=== PATIENT | female | born 1995 | race Hispanic/Latino ===

== ENCOUNTER 2023-01-05 21:35 | Emergency (ER) | payer OTHER ==
[~2023-01-05] VITALS: Ht 154.9 cm; Wt 73.9 kg
[2023-01-05 22:27] LABS: RAPID GROUP A STREP negative (NEGATIVE)
[2023-01-05 22:49] LABS: SARS-CoV-2, RNA, NAAT NEGATIVE SARS CoV-2 (NEGATIVE)
[2023-01-05 22:50] LABS: INFLUENZA TYPE A Negative For Type A (NEGATIVE); INFLUENZA TYPE B Negative For Type B (NEGATIVE)
[2023-01-06 01:22] VITALS: PULSE 91; RESP 23
[2023-01-06 01:28] VITALS: PULSE 92; RESP 22
[2023-01-06] MEDS ORDERED: SOLU-MEDROL 125MG VIAL IVP ONE (01:30)
[2023-01-06] MEDS ORDERED: IPRATROPIUM/ALBUTEROL SULFATE 3 ML SOLUTION IH ONE ×2 (01:30→04:00)
[2023-01-06] MEDS ORDERED: MAGNESIUM 2GM PREMIX 50ML 50 ML IV SCH (01:30)
[2023-01-06 03:58] VITALS: PULSE 90; RESP 18
[2023-01-06] MEDS ORDERED: CEFU500T67 PO (04:23)
[2023-01-06] MEDS ORDERED: PRED20TA3 PO (04:23)
[2023-01-06] MEDS ORDERED: ALBU90AE2 IH (04:23)
[2023-01-06 04:40] VITALS: BP 117/64; PULSE 86; RESP 16; O2SAT 100
== END 2023-01-06 05:00 | disposition home or self-care (01) ==
LOC: EDH 21:35
DX: J45.909 Unspecified asthma, uncomplicated (principal); Z20.822 Contact with and (suspected) exposure to COVID-19
CPT/HCPCS: 99285; 71045; 87635; 87880; 87804 ×2; 81025; 94640 ×3; C9803; J3475; J2930; 96365; 96374; 96375